=== PATIENT | male | born 1970 | race Caucasian/White ===

== ENCOUNTER 2017-08-12 10:14 | Emergency (ER) | payer OTHER ==
[2017-08-12 10:43] VITALS: BP 124/81
--- NOTE | 2017-08-12 10:58 | UC ---
Neck Pain HPI - HPI Summary HPI Summary: left side neck pain x 2 days now the pain is more at the base of left occipital area , very tender to touch , no fever, no chills, no skin rash - History of Current Complaint Chief Complaint: UCUpperExtremity Stated Complaint: HEAD PAIN (3DAYS) Time Seen by Provider: 08/12/17 10:45 Hx Obtained From: Patient Timing: Constant Onset/Duration: Gradual Onset, Lasting Days - 2, Still Present, Worse Since - today Severity: Moderate Pain Intensity: 5 Location: Discrete At: - left poterior scalp Character: Sharp Aggravating Factors: Other: - touch Alleviating Factors: Nothing Associated Signs & Symptoms: Positive: Headache. Negative: Swelling, Redness, Bruising, Fever, Nuchal Rigity, Weakness, Paresthesia - Allergies/Home Medications Allergies/Adverse Reactions: Allergies Allergy/AdvReac Type Severity Reaction Status Date / Time No Known Allergies Allergy Verified 08/12/17 10:34 Home Medications: Home Medications Sertraline* [Zoloft*] 100 mg PO DAILY 08/12/17 [History Confirmed 08/12/17] Tamsulosin CAP* [Flomax CAP*] 0.4 mg PO DAILY 08/12/17 [History Confirmed ] amLODIPine TAB* [Norvasc 5 mg TAB*] 10 mg PO DAILY 08/12/17 [History Confirmed 08/12/17] buPROPion TAB* [Wellbutrin TAB*] 75 mg DAILY 08/12/17 [History Confirmed ] PMH/Surg Hx/FS Hx/Imm Hx Psychological History: Anxiety, Depression - Surgical History Surgical History: Yes Surgery Procedure, Year, and Place: FOOT SURGERY - Family History Known Family History: Negative: Renal Disease - Social History Alcohol Use: None Substance Use Type: None Smoking Status (MU): Never Smoked Tobacco Review Of Systems Constitutional: Positive: Negative Skin: Positive: Negative Eyes: Positive: Negative ENT: Positive: Negative Respiratory: Positive: Negative Cardiovascular: Positive: Negative All Other Systems Reviewed And Are Negative: Yes Physical Exam Triage Information Reviewed: Yes Appearance: Well-Appearing, No Pain Distress, Well-Nourished Vital Signs: Initial Vital Signs Temp 97.9 F 08/12/17 10:35 Pulse 73 08/12/17 10:35 Resp 20 08/12/17 10:35 BP 124/81 03/13/18 10:35 Pulse Ox 98 08/12/17 10:35 Vital Signs Reviewed: Yes Eyes: Positive: Conjunctiva Clear ENT: Positive: Normal ENT inspection, Hearing grossly normal, Pharynx normal Neck exam: Normal Neck: Positive: Supple, Nontender, No Lymphadenopathy Respiratory: Positive: Chest non-tender, Lungs clear, Normal breath sounds Cardiovascular: Positive: RRR, No Murmur, Pulses Normal Abdominal Exam: Normal Skin: Positive: Other - left poterior scalp : no swelling, no erythema, no rash , + sever tenderness. Negative: rashes Neck Pain Course/Dx - Differential Dx/Diagnosis Provider Diagnoses: shingles Discharge - Discharge Plan Condition: Stable Disposition: HOME Prescriptions: ValACYclovir (*) [Valtrex 1 GM(*)] 1 gm PO TID #21 tab Patient Education Materials: Shingles (ED) Referrals: Walter Webster MD [Primary Care Provider] - 7 Days Additional Instructions: ? start of Shingles will start Valtrax , use warm compresses, take Tylenol as needed for pain may have a Rash in few days follow up with your pcp in 1 week if not better
== END 2017-08-12 11:03 | disposition home or self-care (01) ==
LOC: UCCORT 10:14
DX: B02.9 Zoster without complications (principal); R51 Headache; F41.9 Anxiety disorder, unspecified; F32.9 Major depressive disorder, single episode, unspecified
CPT/HCPCS: 99202; G0463